=== PATIENT | female | born 1960 | race Caucasian/White ===

== ENCOUNTER 2019-03-18 05:13 | Day surgery (SDC) ==
--- NOTE | 2019-02-27 17:51 | EKG Report ---
Test Performed on : 02/27/2019 5:39:33 PM Test Reason : JOINT CAMP/PAT Blood Pressure : / mmHG Vent. Rate : 078 BPM Atrial Rate : 078 BPM P-R Int : 148 ms QRS Dur : 086 ms QT Int : 386 ms P-R-T Axes : 066 -01 064 degrees QTc Int : 440 ms Normal sinus rhythm. Septal infarct , age undetermined Abnormal ECG No previous ECGs available Confirmed by Eddie Toure MD ([id number]) on 03/04/2019 8:31:03 AM
[2019-02-27 18:16] LABS: URINE SOURCE CLEAN CATCH
[2019-02-27 18:20] LABS: BASO# 0.03 X1000 (0.0-0.2); BASO% 0.4 % (0.0-0.8); EOS# 0.13 X1000 (0.0-0.7); EOS% 1.7 % (0.0-10.0); HEMATOCRIT 41.6 % (37.0-47.0); HEMOGLOBIN 14.2 g/dL (12.0-16.0); LYMPH# 2.76 X1000 (1.2-3.4); LYMPH% 35.9 % (20.5-51.1); MCH 28.7 PG (27-31); MCHC 34.1 g/dL (33-37); MCV 84.2 FL (81-99); MONO# 0.77 X1000 (0.11-0.59); MPV 9.9 FL (7.4-10.4); PLT 432 X1000 (130-400); RBC 4.94 XMIL (4.2-5.4); RDW 13.7 % (11.5-14.5); WBC 7.69 X1000 (4.8-10.8)
[2019-02-27 18:26] LABS: BILIRUBIN URINE NEGATIVE (NEGATIVE); BLOOD URINE NEGATIVE (NEGATIVE); COLOR YELLOW; GLUCOSE URINE NEGATIVE (NEGATIVE); KETONE URINE NEGATIVE (NEGATIVE); LEUKOCYTES URINE NEGATIVE (NEGATIVE); NITRITE URINE NEGATIVE (NEGATIVE); PROTEIN URINE TRACE mg/dL (NEGATIVE); SP GRAVITY URINE 1.021; TURBIDITY URINE CLEAR (CLEAR); UROBILINOGEN URINE 2 mg/dL (NORMAL)
[2019-02-27 18:27] LABS: INR 0.97; UR EPITHELIAL CELLS <10 /HPF (<10); URINE BACTERIA NEGATIVE /HPF; URINE RBC <10 /HPF (<10); URINE WBC <10 /HPF (<10)
[2019-02-27 18:28] LABS: PTT 50.1 Seconds (22.3-41.8)
[2019-02-27 18:34] LABS: HEMOGLOBIN A1C 5.8 % (4.8-6.0)
[2019-02-27 18:41] LABS: AGAP 10; BUN 13 mg/dL (8-22); CHLORIDE 99 mmol/L (98-107); COSMO 275; CREATININE 0.8 mg/dL (0.5-0.9); GLUCOSE 126 mg/dL (70-104); POTASSIUM 3.9 mmol/L (3.5-5.1); SODIUM 137 mmol/L (136-145); TCO2 28 mmol/L (25-35)
[2019-02-27 18:42] LABS: ALBUMIN 4.5 g/dL (3.5-5.0); CALCIUM 10.2 mg/dL (8.8-10.2); ESTIMATED GFR > 60
[2019-03-18] MEDS ORDERED: PEPCID ONE (05:38)
[2019-03-18] MEDS ORDERED: REGLAN ONE (05:38)
[2019-03-18] MEDS ORDERED: COLACE ONE (05:38)
[2019-03-18] MEDS ORDERED: LYRICA ONE (05:39)
[2019-03-18] MEDS ORDERED: LR 1,000 ML ONE (05:40)
[2019-03-18] MEDS ORDERED: CELEBREX ONE (05:40)
[2019-03-18] MEDS ORDERED: KEFZOL 1 GM/D5W 2 GM/100 ML IVPB ONE (05:40)
[2019-03-18 06:10] LABS: INR 0.95; PROTIME 12.8 Seconds (11.0-16.0)
[2019-03-18 06:12] LABS: PTT 48.8 Seconds (22.3-41.8)
[2019-03-18] MEDS ORDERED: SODIUM CHLORIDE 0.9% ONE (06:48)
[2019-03-18] MEDS ORDERED: TORADOL ONE (06:48)
[2019-03-18] MEDS ORDERED: VANCOMYCIN ONE (06:48)
[2019-03-18] MEDS ORDERED: DURAMORPH ONE (06:48)
[2019-03-18] MEDS ORDERED: SENSORCAINE 0.25%/EPI 1:200,000 ONE (06:48)
[2019-03-18] MEDS ORDERED: EXPAREL 1.3% ONE (06:49)
[2019-03-18] MEDS ORDERED: NEOSPORIN G.U. IRRIGANT ONE (06:49)
[2019-03-18] MEDS ORDERED: DIPRIVAN 1% ONE (06:53)
[2019-03-18] MEDS ORDERED: XYLOCAINE-MPF 2% ONE (06:54)
[2019-03-18] MEDS ORDERED: VERSED ONE (06:55)
[2019-03-18] MEDS ORDERED: EPHEDRINE ONE (07:20)
[2019-03-18] MEDS: CYKLOKAPRON 1,000 MG/NS 2,000 MG/200 ML IVPB ONE ×2 (07:22→08:50)
[2019-03-18] MEDS ORDERED: OFIRMEV 1000 MG/ISOTONIC SOLN 1,000 MG/100 ML BOTTLE ONE (07:30)
[2019-03-18] MEDS ORDERED: DECADRON ONE (07:30)
[2019-03-18] MEDS ORDERED: FENTANYL ONE (07:36)
[2019-03-18] MEDS ORDERED: ZOFRAN ONE (07:45)
[2019-03-18] MEDS ORDERED: DILAUDID ONE (08:00)
[2019-03-18 08:31] LABS: URINE SOURCE CATH
[2019-03-18 08:39] LABS: BILIRUBIN URINE NEGATIVE (NEGATIVE); BLOOD URINE NEGATIVE (NEGATIVE); COLOR YELLOW; GLUCOSE URINE NEGATIVE (NEGATIVE); KETONE URINE NEGATIVE (NEGATIVE); LEUKOCYTES URINE NEGATIVE (NEGATIVE); NITRITE URINE NEGATIVE (NEGATIVE); PH URINE 6.5; PROTEIN URINE NEGATIVE (NEGATIVE); SP GRAVITY URINE 1.018; TURBIDITY URINE CLEAR (CLEAR); UROBILINOGEN URINE NORMAL (NORMAL)
[2019-03-18 08:40] LABS: UR EPITHELIAL CELLS <10 /HPF (<10); URINE BACTERIA NEGATIVE /HPF; URINE RBC <10 /HPF (<10); URINE WBC <10 /HPF (<10)
[2019-03-18] MEDS ORDERED: NS 1,000 ML ONE (09:58)
[2019-03-18] MEDS: DILAUDID ONE ×4 (09:58→10:17)
[2019-03-18] MEDS ORDERED: PHENERGAN ONE (10:21)
[2019-03-18] MEDS ORDERED: ZOFRAN ODT PO PRN (10:30)
[2019-03-18] MEDS ORDERED: MILK OF MAGNESIA PO PRN (10:30)
[2019-03-18] MEDS ORDERED: DILAUDID IV PRN (10:30)
[2019-03-18] MEDS ORDERED: ZOFRAN IV PRN (10:30)
[2019-03-18] MEDS ORDERED: PRILOSEC PO PRN (13:36)
[2019-03-18] MEDS: COLACE PO SCH ×2 (13:36→20:47)
--- NOTE | 2019-03-18 14:33 | OPERATIVE NOTE ---
PROCEDURE DATE: 03/18/2019 PREOPERATIVE DIAGNOSIS: Right knee degenerative joint disease. POSTOPERATIVE DIAGNOSIS: Right knee degenerative joint disease. PROCEDURE PERFORMED: Right total knee arthroplasty using a [facility] size 6 femoral component, a size 5 tibial baseplate, an 11 mm articular insert, and a 32 mm patellar component. ANESTHESIA: General. SURGEON: Sinan Benjamin MD. PUBLICATIONS DISTRIBUTION CLERK: VICKY Barron, who was present throughout the case and whose assistance was critical for successful completion of the case. BLOOD LOSS: Minimal. TOURNIQUET TIME: Approximately an hour. DESCRIPTION OF THE PROCEDURE: The patient was brought to the operative suite and placed in the supine position. After successful administration of general anesthesia, a well-padded tourniquet was placed on the right proximal thigh. The right lower extremity was prepped and draped in the usual sterile fashion. Leg was exsanguinated. Tourniquet was insufflated to 350 torr. A longitudinal incision was made beginning at the superior pole of the patella and extended distally to the tibia tuberosity. Full-thickness skin flaps were elevated medially and laterally. Then a medial arthrotomy was performed. The medial capsule was elevated off the medial tibial plateau. The ACL, PCL, medial meniscus, and lateral meniscus were excised. A drill was entered into the center of the distal femur. Intramedullary guide was placed. A distal cutting block was pinned in place. Distal cut was made with an oscillating saw. The marginal osteophytes were removed with a rongeur. Attention was then directed to the tibia. A drill was entered in the center of the tibia, checking alignment with the drop suze, referencing off the anterior cortex of the tibia and the second ray of the foot, and taking 4 mm off the low side of the tibia which in this case was medially. The tibial cutting block was pinned in place. The articular surface of the tibial plateau was removed with an oscillating saw. Marginal osteophytes were removed with a rongeur. The knee was taken out into extension. Once we were sure that all meniscal tissue had been excised, the flexion-extension gaps were checked and balanced at 11 mm. Therefore, the flexion gap was set to 20 mm to account for the 9 mm of the posterior condyle and the femur was measured at a size 6. Once this was marked, the size 6 tibial cutting block was pinned into place. The anterior cuts, chamfer cuts, and posterior condylar cuts were made with the oscillating saw. Marginal osteophytes were removed with a rongeur. A box cutting block was pinned in place. Box cut was made a box osteotome and oscillating saw. Posterior condylar osteophytes were removed with a curved osteotome and rongeur. Attention was then directed to the tibia. Tibia was sized to a size 5. A size 5 guide was used for the fin punch. The tibial trial, femoral trial, and 11 mm articular insert were placed and taken through range of motion, and found to have excellent range of motion, alignment, and balancing of the knee. Attention was then directed to the patella. Nine millimeters of the articular surface of the patella were removed with an oscillating saw. The patella sized to a size 32. A size 32 guide was used to drill peg holes. The lateral facet was chamfered 30 to 45 degrees. Patella trial was placed. Taken through a range of motion. Found to be subluxing laterally. A lateral release was performed. Once this was performed, the kneecap tracked properly. The trials were removed. The knee was copiously irrigated and dried. The tibial component, femoral component, and patellar component were cemented in place, excess cement being removed with a [place]. Once the cement had hardened and the excess cement was again removed with an osteotome, the knee was again copiously irrigated and dried, being certain all bone and cement debris were removed. The knee was copiously infiltrated with Exparel including the posterior capsule, anterior capsule, anterior musculature, and subcutaneous tissue. A drain was placed, exiting superolaterally and buried in the lateral gutter. The definitive 11 mm articular insert was locked into place. The knee was again taken through a range of motion and again found to have excellent alignment, balancing, range of motion, and patella tracking. The knee was again copiously irrigated with normal saline containing irrigant and Vashe irrigation. The medial arthrotomy was closed with interrupted #1 suture. The skin edges were approximated with 2-0 Vicryl. The skin was closed with Prineo and a sterile dressing was applied. The patient tolerated the procedure well without complication. At the end the procedure, all counts were correct x2. The patient was transferred to the recovery room in stable condition. cc: Sinan Benjamin MD
[2019-03-18] MEDS: ULTRAM PO SCH ×2 (16:10→20:46)
[2019-03-18] MEDS: KEFZOL 2 GM/D5W 2 GM/50 ML IVPB IV SCH ×2 (16:10→23:27)
[2019-03-18] MEDS: TYLENOL PO SCH ×2 (16:10→23:26)
[2019-03-18] MEDS: NS 1,000 ML IV SCH ×2 (16:12→20:50)
[2019-03-18] MEDS: NORCO-7.5 PO PRN ×2 (18:30→22:20)
[2019-03-18] MEDS: PERIDEX MT SCH (20:46)
[2019-03-18] MEDS: GLUCOPHAGE PO SCH (20:46)
[2019-03-18] MEDS ORDERED: SINGULAIR PO SCH (21:00)
[2019-03-18] MEDS ORDERED: LEXAPRO PO SCH (21:00)
[2019-03-18] MEDS ORDERED: ZOCOR PO SCH (21:00)
[2019-03-18] MEDS: DILAUDID IV PRN (23:27)
[2019-03-19] MEDS: NORCO-7.5 PO PRN ×4 (04:14→15:11)
[2019-03-19] MEDS: DILAUDID IV PRN ×2 (04:45→13:04)
[2019-03-19] MEDS: SYNTHROID PO SCH ×2 (04:45→06:33)
[2019-03-19] MEDS: ULTRAM PO SCH ×2 (05:47→13:22)
[2019-03-19 06:30] LABS: HEMOGLOBIN 10.5 g/dL (12.0-16.0)
[2019-03-19 06:46] LABS: AGAP 9; BUN 7 mg/dL (8-22); CALCIUM 8.5 mg/dL (8.8-10.2); CHLORIDE 105 mmol/L (98-107); COSMO 283; CREATININE 0.5 mg/dL (0.5-0.9); ESTIMATED GFR > 60; GLUCOSE 126 mg/dL (70-104); POTASSIUM 4.3 mmol/L (3.5-5.1); SODIUM 142 mmol/L (136-145); TCO2 28 mmol/L (25-35)
[2019-03-19] MEDS ORDERED: ESTRACE PO SCH (09:00)
[2019-03-19] MEDS ORDERED: ASPIRIN PO SCH (09:00)
[2019-03-19] MEDS ORDERED: NORVASC PO SCH (09:00)
[2019-03-19] MEDS ORDERED: MOBIC PO SCH (09:00)
[2019-03-19] MEDS ORDERED: PRINIVIL PO SCH (09:00)
[2019-03-19 11:32] VITALS: BP 163/72
[2019-03-19] MEDS: COLACE PO SCH (13:22)
[2019-03-19] MEDS: GLUCOPHAGE PO SCH (13:22)
[2019-03-19] MEDS: PERIDEX MT SCH (13:23)
--- NOTE | 2019-03-20 02:49 | DISCHARGE SUMMARY ---
ADMISSION DATE: 03/18/2019 DISCHARGE DATE: 03/19/2019 DISCHARGE DIAGNOSES: Right knee degenerative joint disease status post right total knee arthroplasty. DISCHARGE MEDICATIONS: See discharge med list. DISCHARGE DISPOSITION: The patient was discharged home with home health physical therapy. Instructed to return for any signs of infection, deep venous thrombosis, instructed to return to see Dr. Benjamin next . HOSPITAL COURSE: On the day of admission the patient underwent right total knee arthroplasty. Her postoperative course was unremarkable. At discharge she was afebrile, tolerating a regular diet and ambulating well with physical therapy. Her wound is clean, dry and intact without sign of infection. Her hematocrit is 32. She is discharged home in stable condition with instructions to follow up as described above. cc: Sinan Benjamin MD
== END 2019-03-19 15:15 | disposition home or self-care (01) ==
LOC: OR 05:13 → 4N 05:13 → OR 03-19 15:15
PROVIDERS: ATTEND Orthopaedic Surgery

== ENCOUNTER 2019-04-03 09:45 | Observation (INO) ==
[2019-04-03] MEDS ORDERED: LR 1,000 ML ONE (10:35)
[2019-04-03] MEDS ORDERED: KEFZOL 1 GM/D5W 2 GM/100 ML IVPB ONE (10:35)
[2019-04-03] MEDS ORDERED: XYLOCAINE-MPF 2% ONE (11:41)
[2019-04-03] MEDS ORDERED: FENTANYL ONE ×2 (11:42→12:55)
[2019-04-03] MEDS ORDERED: DIPRIVAN 1% ONE (11:42)
[2019-04-03] MEDS ORDERED: VANCOMYCIN ONE (11:56)
[2019-04-03] MEDS ORDERED: TOBRAMYCIN POWDER MISC ONE (12:00)
[2019-04-03] MEDS ORDERED: DECADRON ONE (12:24)
[2019-04-03] MEDS ORDERED: ZOFRAN ONE (12:24)
[2019-04-03] MEDS ORDERED: EXPAREL 1.3% ONE (12:49)
[2019-04-03] MEDS ORDERED: TORADOL ONE (12:49)
[2019-04-03] MEDS ORDERED: SODIUM CHLORIDE 0.9% ONE (12:49)
[2019-04-03] MEDS ORDERED: DURAMORPH ONE (12:49)
[2019-04-03] MEDS ORDERED: MARCAINE 0.25% PF ONE (12:49)
[2019-04-03] MEDS ORDERED: VANCOMYCIN 1 GM/NS 1 GM/250 ML IVPB IV ONE ×2 (13:27→16:00)
[2019-04-03] MEDS ORDERED: VANCOMYCIN 1 GM/NS 1 GM/250 ML IVPB ONE (13:33)
[2019-04-03] MEDS: DILAUDID ONE ×4 (13:50→14:00)
[2019-04-03] MEDS ORDERED: NS 1,000 ML ONE (13:50)
[2019-04-03] MEDS: PHENERGAN ONE ×3 (13:58→14:08)
--- NOTE | 2019-04-03 14:24 | OPERATIVE NOTE ---
PROCEDURE DATE: 04/03/2019 PREOPERATIVE DIAGNOSIS: Right knee infected total knee arthroplasty. POSTOPERATIVE DIAGNOSIS: Right knee infected total knee arthroplasty. PROCEDURE: Irrigation and debridement with polyethylene exchange and antibiotic bead placement, right total knee. ANESTHESIA: General. SURGEON: Sinan Benjamin M.D. RENT AND HOUSING INVESTIGATOR: Ofe. COMPLICATIONS: None. BLOOD LOSS: Minimal. TOURNIQUET TIME: Approximately an hour. DESCRIPTION OF PROCEDURE: The patient was brought to the operative suite and placed in the supine position. After successful administration of general anesthesia, a well-padded tourniquet was placed on the right proximal thigh. Right lower extremity was prepped and draped in the usual sterile fashion. Using the previous incision, the wound was opened. It was found to have purulent-appearing fluid subcutaneously. Cultures were obtained of this. This communicated with the knee joint through the previous lateral release. The arthrotomy was opened by removing the previous sutures. The polyethylene was removed. The knee was copiously irrigated with normal saline containing irrigant, Bactisure 1 L, and then another 3 L of normal saline containing irrigant, and then Vashe irrigation and diluted Betadine. All necrotic tissue was removed. The drain was placed, exiting superolaterally. Antibiotic beads were placed in the deep tissue. The definitive articular insert was then locked back into place, a new polyethylene, and then more antibiotic beads were placed beneath the arthrotomy site, and then the medial arthrotomy was closed with a running 0 V-Loc suture. The antibiotic beads were placed superficially as well, and then the skin incision was closed with interrupted nylon suture. A sterile dressing, well-padded, was applied. The patient tolerated the procedure without complication. At the end of the procedure, all counts were correct x2. The patient was transferred to the recovery room in stable condition. cc: Sinan Benjamin MD
[2019-04-03] MEDS ORDERED: ZOFRAN ODT PO PRN (15:15)
[2019-04-03] MEDS ORDERED: OXY IR PO PRN (15:15)
[2019-04-03] MEDS ORDERED: VANCOMYCIN IV PER PHARMACY MISC SCH (15:15)
[2019-04-03] MEDS ORDERED: ZOFRAN PO PRN (15:15)
[2019-04-03] MEDS ORDERED: MILK OF MAGNESIA PO PRN ×2 (15:15→16:57)
[2019-04-03] MEDS ORDERED: MORPHINE IV PRN ×3 (15:15)
[2019-04-03] MEDS ORDERED: PRILOSEC PO PRN (16:57)
[2019-04-03] MEDS: ULTRAM PO SCH ×3 (17:24→22:35)
[2019-04-03] MEDS: GLUCOPHAGE PO SCH (17:24)
[2019-04-03] MEDS: NORCO-10 PO PRN ×2 (17:47→23:11)
--- NOTE | 2019-04-03 19:11 | INFECTIOUS DISEASE CONSULT REP ---
DATE: 04/03/2019 CONCLUSION: The patient has an infected right total knee arthroplasty with a gram-positive coccus. She is status post incision and drainage of a right total knee arthroplasty with a poly exchange. RECOMMENDATIONS: I agree with placing the patient on vancomycin. Some of the side effects of the antibiotic, including rash, renal toxicity and ototoxicity have been explained to the patient who agrees with treatment. I have also ordered to have a PICC placed tomorrow. If the patient has methicillin-resistant Staph aureus growing from the knee, I will be treating the patient with 8 weeks of IV vancomycin. If it is any other gram- positive coccus including an oxacillin sensitive Staph aureus, I will be treating the patient with the appropriate antibiotic for 6 weeks. Following the IV antibiotic I will place the patient on a low dose of a PO antibiotic for a prolonged period of time. DISCUSSION: The patient tells me that since she had her total knee arthroplasty, she has had drainage from the knee. In the past for 4 to 5 days, the drainage has increased and the knee became swollen and painful and the patient started running a fever and had chills. Recent laboratory study shows an hemoglobin and hematocrit of 10.5 and 32 with a creatinine of 0.5, and a GFR of greater than 60. Liver function studies were normal. Urinalysis showed no white cells or bacteria. A culture taken from the knee yesterday is growing a gram-positive coccus. PAST MEDICAL HISTORY/REVIEW OF SYSTEMS: Eyes and ears: She does not have any problems seeing or hearing. Neck: No stiffness. Respiratory: No cough or shortness of breath. Cardiac: No chest pain or palpitations. GI: No nausea, vomiting, or diarrhea. : No dysuria or flank pain. Bone joints muscles: See present illness. Neurologic: No seizures. No loss of motor or sensory function. Integument: No rash. 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 She has had a hysterectomy. PREVIOUS HOSPITALIZATIONS AND OPERATIONS: She has had 2 labor and deliveries, a hysterectomy, carpal tunnel surgery, a left total knee arthroplasty and a cholecystectomy. MEDICAL DISEASES: Positive for diabetes mellitus, hypertension, hyperlipidemia, and obesity. INFECTIOUS DISEASE HISTORY: Positive for UTI. The patient also told me that when she takes antibiotics she gets vaginitis. FAMILY HISTORY: Positive for hypertension, myocardial infarction, and cancer. SOCIAL HISTORY[place] . She has smokes cigarettes and drinks alcoholic beverages. She does not abuse drugs. She does not have any pets at home. PHYSICAL EXAMINATION: Vital Signs: Temperature was 100 degrees, now it is 98. Pulse is 100. Respiratory rate is 20. Blood pressure is 180/110. Patient is 5 feet 7 inches tall, weighs 205 pounds. General: This is an obese, middle-aged female. She is in no acute distress. Head/eyes/ears/nose/throat: She can hear my spoken words and see near objects. She does not have any white patches in her mouth. Neck: No meningismus. Lungs: Clear to auscultation. Cardiovascular: Regular and rapid heart rate. Abdomen: Soft and nontender. Extremities: The patient has a large dressing around the right leg. Neurologic: The patient is alert she can move her. She can move her extremities. There is no tremor. Her memory as regarding her medications medical history is intact. Integument: No rash noted. Thank you for the consult. cc: MD Sinan Chapa MD MTDRosalia
[2019-04-03] MEDS: KEFZOL 2 GM/D5W 2 GM/50 ML IVPB IV SCH (20:50)
[2019-04-03] MEDS: COLACE PO SCH (21:35)
[2019-04-03] MEDS: PERIDEX MT SCH (21:35)
[2019-04-03] MEDS: ZOCOR PO SCH (21:35)
[2019-04-03] MEDS: SINGULAIR PO SCH (21:35)
[2019-04-03] MEDS: LEXAPRO PO SCH (21:35)
[2019-04-04] MEDS: KEFZOL 2 GM/D5W 2 GM/50 ML IVPB IV SCH (05:48)
[2019-04-04] MEDS: NS 1,000 ML IV SCH ×2 (05:48→20:29)
[2019-04-04] MEDS: VANCOMYCIN 1,500 MG in NS 250 ML IV SCH ×2 (05:49→19:46)
[2019-04-04 07:09] LABS: BASO# 0.02 X1000 (0.0-0.2); BASO% 0.2 % (0.0-0.8); EOS# 0.01 X1000 (0.0-0.7); EOS% 0.1 % (0.0-10.0); HEMATOCRIT 31.9 % (37.0-47.0); HEMOGLOBIN 10.3 g/dL (12.0-16.0); IMM GRAN# 0.03 X1000 (0.0-0.04); IMM GRAN% 0.3 % (0.0-0.5); LYMPH# 1.53 X1000 (1.2-3.4); LYMPH% 12.8 % (20.5-51.1); MCHC 32.3 g/dL (33-37); MCV 86.7 FL (81-99); MONO# 1.41 X1000 (0.11-0.59); MONO% 11.8 % (1.7-9.3); MPV 9.8 FL (7.4-10.4); NEUT# 8.99 X1000 (1.4-6.5); NEUT% 74.8 % (42.2-75.2); PLT 513 X1000 (130-400); RBC 3.68 XMIL (4.2-5.4); RDW 14.3 % (11.5-14.5); WBC 11.99 X1000 (4.8-10.8)
[2019-04-04 07:11] LABS: INR 1.08; PROTIME 14.2 Seconds (11.0-16.0)
[2019-04-04 07:38] LABS: AGAP 12; BUN 9 mg/dL (8-22); CALCIUM 9.1 mg/dL (8.8-10.2); CHLORIDE 98 mmol/L (98-107); COSMO 270; CREATININE 0.5 mg/dL (0.5-0.9); ESTIMATED GFR > 60; GLUCOSE 119 mg/dL (70-104); SODIUM 135 mmol/L (136-145); TCO2 25 mmol/L (25-35)
[2019-04-04] MEDS: NORCO-10 PO PRN ×3 (08:16→19:13)
--- NOTE | 2019-04-04 08:19 | ORTHOPAEDICS PROGRESS NOTE ---
DATE: 04/03/2019 SUBJECTIVE: Elenita Shetty is a 59-year-old female, who underwent irrigation and debridement and poly exchange antibiotic bead placement for right infected total knee arthroplasty. She states she is much improved this morning. OBJECTIVE: General: She is a well-developed, well-nourished female. She is alert and cooperative with exam. Vital Signs: Her vital signs are stable. She is afebrile. LABS: Her Gram stain taken in the office shows 2+ gram-positive cocci. Her Gram stain from the OR yesterday showed gram-positive cocci as well. We await the specific bacteria and sensitivities. ASSESSMENT: Stable right knee after incision and drainage. PLAN: We will plan on having physical therapy work with her today, and we will get Dr. Farooq to see her from an Infectious Disease standpoint. I suspect she is going to need 8 weeks of IV antibiotics and then probably long-term suppression antibiotics as we attempt to keep her total knee arthroplasty. cc: Sinan Benjamin MD
[2019-04-04] MEDS ORDERED: NS 250 ML ONE (08:45)
[2019-04-04] MEDS: GLUCOPHAGE PO SCH ×2 (09:02→17:01)
[2019-04-04] MEDS: PERIDEX MT SCH ×2 (09:02→21:55)
[2019-04-04] MEDS: ESTRACE PO SCH (09:02)
[2019-04-04] MEDS: COLACE PO SCH ×2 (09:02→21:56)
[2019-04-04] MEDS: PRINIVIL PO SCH (09:03)
[2019-04-04] MEDS: SYNTHROID PO SCH (09:04)
[2019-04-04] MEDS: MOBIC PO SCH (09:04)
[2019-04-04] MEDS: NORVASC PO SCH (09:05)
[2019-04-04] MEDS: OXY IR PO PRN ×2 (11:05→16:58)
[2019-04-04] MEDS: ULTRAM PO SCH ×4 (12:38→22:10)
--- NOTE | 2019-04-04 13:32 | INFECTIOUS DISEASE PROGRESS NO ---
DATE: 04/04/2019 The patient is growing an oxacillin sensitive Staph aureus from her knee. My plan is to treat the patient with Ancef 2 g IV every 8 hours for 6 weeks and then follow that with Keflex 500 mg p.o. every 12 hours for a long period of time. Some of the side effects of Ancef including rash and diarrhea have been explained to the patient who agrees with treatment. In the hospital, she has been already receiving Ancef. I have requested the patient come to my office in 3 weeks and then at 6 weeks. At the 6 weeks appointment, we will remove the patient's PICC and start her on p.o. Keflex. cc: MD Sinan Chapa MD
[2019-04-04] MEDS: ZOCOR PO SCH (21:56)
[2019-04-04] MEDS: SINGULAIR PO SCH (21:56)
[2019-04-04] MEDS: LEXAPRO PO SCH (21:56)
[2019-04-05] MEDS: NORCO-10 PO PRN ×2 (01:47→06:56)
[2019-04-05] MEDS: ULTRAM PO SCH ×2 (04:05→11:43)
[2019-04-05] MEDS: VANCOMYCIN 1,500 MG in NS 250 ML IV SCH (06:31)
[2019-04-05 07:04] LABS: HEMATOCRIT 33.2 % (37.0-47.0); HEMOGLOBIN 10.5 g/dL (12.0-16.0)
[2019-04-05] MEDS: COLACE PO SCH (08:35)
[2019-04-05] MEDS: SYNTHROID PO SCH (08:35)
[2019-04-05] MEDS: PERIDEX MT SCH (08:35)
[2019-04-05] MEDS: MOBIC PO SCH (08:35)
[2019-04-05] MEDS: ESTRACE PO SCH (08:36)
[2019-04-05] MEDS: GLUCOPHAGE PO SCH (08:36)
[2019-04-05] MEDS: NORVASC PO SCH (08:37)
[2019-04-05] MEDS: PRINIVIL PO SCH (08:37)
--- NOTE | 2019-04-05 09:06 | INFECTIOUS DISEASE PROGRESS NO ---
DATE: 04/05/2019 There has been a change in the patient's treatment. The initial earliest culture from the patient's knee grew an oxacillin Staph aureus, and the most recent culture from the patient's knee is growing methicillin-resistant Staph aureus. The first one grew an oxacillin sensitive Staph aureus. I have discussed with microbiology the above findings, and they do not have an exact reason why the earlier culture should show oxacillin sensitive Staph aureus, and the one a day later is methicillin-resistant Staph aureus. In any event, I think it is best to treat the patient with coverage for the methicillin resistant Staph aureus with vancomycin because vancomycin will also cover the oxacillin sensitive Staph aureus. Some of the side effects of vancomycin, including rash, renal and ototoxicity's have been explained to the patient who agrees with treatment. The plan will be to treat the patient now with vancomycin for 8 weeks instead of 6 weeks. After the intravenous antibiotic is done, then I will be giving the patient either doxycycline or Septra once a day indefinitely to prevent any flare up from the infection. cc: MD Sinan Chapa MD MTDD
[2019-04-05] MEDS ORDERED: PNEUMOVAX 23 IM ONE (10:15)
[2019-04-05 11:16] VITALS: BP 139/78
--- NOTE | 2019-04-05 13:55 | DISCHARGE SUMMARY ---
ADMISSION DATE: 04/03/2019 DISCHARGE DATE: 04/05/2019 DISCHARGE DIAGNOSIS: Right infected total knee arthroplasty. 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 DISCHARGE MEDICATIONS: See discharge medication list. DISPOSITION: The patient discharged home with instructions for wound care. Instructed to return for any signs or symptoms of infection or deep venous thrombosis. Instructed to return to see Dr. Farooq in 3 weeks of Infectious Disease. See Dr. Benjamin in one week. HOSPITAL COURSE: The day of admission, patient went to irrigation and debridement of her knee with exchange of polyethylene and antibiotic bead placement. Her postoperative course was unremarkable. At discharge, she is afebrile, tolerating a regular diet, ambulating well with physical therapy. Her wound is clean, dry, intact without sign of infection. She is discharged to home in stable condition, instructed to follow up as described above. cc: Sinan Benjamin MD
== END 2019-04-05 12:30 | disposition home health service (06) ==
LOC: 4N 09:45 → OPS 09:45 → EDSTATUS 12:00
PROVIDERS: ADMIT Orthopaedic Surgery; ATTEND Orthopaedic Surgery

== ENCOUNTER 2019-05-06 11:49 | Day surgery (SDC) ==
[2019-05-06] MEDS ORDERED: PEPCID ONE (12:25)
[2019-05-06] MEDS ORDERED: REGLAN ONE (12:25)
[2019-05-06] MEDS ORDERED: LR 1,000 ML ONE ×2 (12:25→15:09)
[2019-05-06] MEDS ORDERED: KEFZOL 1 GM/D5W 2 GM/100 ML IVPB ONE (12:25)
[2019-05-06] MEDS ORDERED: XYLOCAINE-MPF 2% ONE (12:56)
[2019-05-06] MEDS ORDERED: DIPRIVAN 1% ONE (12:57)
[2019-05-06] MEDS ORDERED: FENTANYL ONE (13:53)
[2019-05-06] MEDS ORDERED: ROBINUL ONE (14:05)
[2019-05-06] MEDS ORDERED: ZOFRAN ONE (14:09)
[2019-05-06] MEDS ORDERED: DECADRON ONE (14:09)
[2019-05-06] MEDS: DILAUDID ONE ×11 (14:40→18:12)
[2019-05-06] MEDS ORDERED: NORCO-5 PO PRN (15:00)
[2019-05-06] MEDS ORDERED: NORCO-7.5 PO PRN (15:00)
[2019-05-06] MEDS ORDERED: MARCAINE 0.5% PF ONE (15:11)
[2019-05-06] MEDS ORDERED: PRILOSEC PO PRN (16:36)
[2019-05-06] MEDS ORDERED: TYLENOL PO PRN (16:36)
[2019-05-06] MEDS ORDERED: MILK OF MAGNESIA PO PRN (16:36)
[2019-05-06] MEDS ORDERED: NORCO-10 PO PRN (16:36)
[2019-05-06] MEDS: NORCO-10 PO PRN ×2 (17:24→21:09)
[2019-05-06] MEDS ORDERED: FLU VACCINE IM ONE (17:26)
[2019-05-06] MEDS: LR 1,000 ML IV SCH (18:11)
--- NOTE | 2019-05-06 19:48 | OPERATIVE NOTE ---
PROCEDURE DATE: 05/06/2019 PREOPERATIVE DIAGNOSIS: Right infected total knee arthroplasty with draining sinus laterally. POSTOPERATIVE DIAGNOSIS: Right infected total knee arthroplasty with draining sinus laterally. PROCEDURE: Excision of draining sinus and irrigation and debridement of the knee. ANESTHESIA: General. SURGEON: Sinan Benjamin MD. LAB SPECIALIST: Vick Thakur RN COMPLICATIONS: None. BLOOD LOSS: Minimal. TOURNIQUET TIME: Approximately 30 minutes. DESCRIPTION OF PROCEDURE: Patient brought to the operative suite and placed in supine position. After successful administration of general anesthesia, a well-padded tourniquet was placed on the right proximal thigh. The right lower extremity was prepped and draped in the usual sterile fashion. The tourniquet was inflated to 350 torr. The previous draining sinus was excised down to where it was coming out of the joint laterally. This was debrided of all necrotic tissues and then copiously irrigated with normal saline and then a Vashe. The fascia was then closed with a running 0 V-Loc. The skin edges were approximated with 3-0 nylon. A sterile dressing was applied. The patient tolerated the procedure without complications. At the end of the procedure all counts correct. The patient was transferred to the recovery room in stable condition. cc: Sinan Benjamin MD
[2019-05-06] MEDS ORDERED: SOD CHLORIDE IV SCH (21:00)
[2019-05-06] MEDS ORDERED: SINGULAIR PO SCH (21:00)
[2019-05-06] MEDS ORDERED: VANCOMYCIN IV SCH (21:00)
[2019-05-06] MEDS ORDERED: LEXAPRO PO SCH (21:00)
[2019-05-06] MEDS ORDERED: ZOCOR PO SCH (21:00)
[2019-05-06] MEDS: VANCOMYCIN 1,000 MG in NS 250 ML IV SCH (21:09)
[2019-05-06] MEDS: COLACE PO SCH (21:09)
[2019-05-06] MEDS: GLUCOPHAGE PO SCH (21:09)
[2019-05-06] MEDS: PERIDEX MT SCH (21:10)
[2019-05-07] MEDS: NORCO-10 PO PRN ×3 (04:08→12:07)
[2019-05-07] MEDS: LR 1,000 ML IV SCH (05:57)
[2019-05-07] MEDS: COLACE PO SCH (08:36)
[2019-05-07] MEDS: GLUCOPHAGE PO SCH (08:36)
[2019-05-07] MEDS ORDERED: ASPIRIN PO SCH (09:00)
[2019-05-07] MEDS ORDERED: MOBIC PO SCH (09:00)
[2019-05-07] MEDS ORDERED: NORVASC PO SCH (09:00)
[2019-05-07] MEDS ORDERED: SYNTHROID PO SCH (09:00)
[2019-05-07] MEDS ORDERED: PRINIVIL PO SCH (09:00)
[2019-05-07] MEDS ORDERED: ESTRACE PO SCH (09:00)
[2019-05-07] MEDS ORDERED: DIFLUCAN PO ONE (09:22)
[2019-05-07] MEDS: VANCOMYCIN 1,000 MG in NS 250 ML IV SCH (09:37)
[2019-05-07] MEDS: PERIDEX MT SCH (09:38)
[2019-05-07 11:17] VITALS: BP 163/86
--- NOTE | 2019-05-07 14:04 | DISCHARGE SUMMARY ---
ADMISSION DATE: 05/06/2019 DISCHARGE DATE: 05/07/2019 DISCHARGE DIAGNOSIS: Right infected total knee arthroplasty with draining sinus, status post irrigation, debridement and excision of draining sinus. DISCHARGE MEDICATIONS: See discharge medication list. DISPOSITION: Patient discharged home. DISCHARGE INSTRUCTIONS: Instructed to max elevate and ice her leg. Instructed that she can change the dressing daily. Instructed to return to see Dr. Benjamin next Monday. cc: Sinan Benjamin MD
== END 2019-05-07 15:09 | disposition home or self-care (01) ==
LOC: 4N 11:49 → OR 11:49 → 4N 14:18 → OR 05-07 15:09
PROVIDERS: ATTEND Orthopaedic Surgery